=== PATIENT | male | born 1950 | race Hispanic/Latino ===

== ENCOUNTER 2018-09-01 00:31 | Emergency (ER) | payer MEDICARE, OTHER ==
[~2018-09-01] VITALS: Ht 172.7 cm; Wt 78.0 kg
[~2018-09-01 00:31] MED LIST: ASPIR 8181 MG PO; ATORVASTATIN CA20 MG PO; DIOVAN HCT 3201 EAC1 PO; KOMBIGLYZE XR1 EAC2 PO; LANTUS100 UNITS/; LOSARTAN-HCTZ1 EAC1 PO; Z.0.ACTOS15 MG PO; Z.0.GLIMEPIRIDE4 MG PO; Z.0.LISINOPRIL10 MG PO; Z.0.SIMVASTATIN40 MG PO; Z.0.TAMSULOSIN HCL0. PO
[2018-09-01] MEDS ORDERED: SODIUM CHLORIDE 0.9% 1000ML 1,000 ML IV STA (00:50)
[2018-09-01] MEDS ORDERED: HYDRALAZINE HCL 20 MG/ML VIAL IV STA (00:50)
[2018-09-01] MEDS ORDERED: MORPHINE SULFATE INJ 4 MG/ML INJ 1ML IV STA (00:50)
[2018-09-01] MEDS ORDERED: FAMOTIDINE 20 MG/2 ML VIAL IV ONE (01:00)
[2018-09-01] MEDS ORDERED: ONDANSETRON HCL INJ 2MG/ML 2ML 2 MG/ML VIAL IV ONE (01:00)
[2018-09-01] MEDS ORDERED: NITROGLYCERIN 2% OINT 1 GM PKT TOP ONE (01:00)
--- NOTE | 2018-09-01 03:07 | Diagnostic Imaging Report ---
EXAMINATION: Head CT without contrast. HISTORY:Dizziness. COMPARISON:None. TECHNIQUE: Multidetector axial images were obtained from the foramen magnum to the vertex without contrast. The images were reconstructed using brain and bone algorithms. Thin section brain images were reformatted into coronal and sagittal planes. Dose modulation, iterative reconstruction, and/or weight based adjustment of the mA/kV was utilized to reduce the radiation dose to as low as reasonably achievable. Intravenous contrast: None IMAGE QUALITY: Acceptable. FINDINGS: Skull/scalp: No lytic or blastic. lesions. No surgical changes. Parenchyma: Nonspecific bilateral frontoparietal few, scattered hypodensity are likely related to small vessel ischemic changes. No acute hemorrhage, mass or acute major vascular territorial infarct. Arteries: No density suggestive of thrombosis. Dural sinuses: No abnormal density suggestive of thrombosis. Ventricles: No hydrocephalus or displacement. Extra-axial spaces: No abnormal density. Brain volume: Normal for age. Craniocervical junction: No mass, Chiari malformation, or basilar invagination. Sella: No mass. Paranasal/mastoid sinuses: Imaged portions unremarkable. IMPRESSION: No acute intracranial abnormality. Signed by: Dr. Heide Duran M.D. on 09/01/2018 3:04 AM
== END 2018-09-01 03:16 | disposition home or self-care (01) ==
LOC: FSED 00:31
DX: R10.9 Unspecified abdominal pain (principal); R11.2 Nausea with vomiting, unspecified; K52.9 Noninfective gastroenteritis and colitis, unspecified; I10 Essential (primary) hypertension
CPT/HCPCS: 70450; 80053; 81003; 82553; 84484; 85025; 87400; 93005; 99284; J7030